=== PATIENT | female | born 1990 | race Caucasian/White ===

== ENCOUNTER 2022-02-22 09:09 | Outpatient (CLI) | payer BC, SELFPAY ==
--- NOTE | 2022-02-22 09:15 | CRLHL7_ITS ---
For Patients: As a result of the Century Cures Act, medical imaging exams and procedure reports are released immediately into your electronic medical record. You may view this report before your referring provider. If you have questions, please contact your health care provider. INDICATION: FOLLOW UP PROFILE AND HEART VIEWS, SUBOPTIMALLY VISUALIZED ON BFAS COMPARISON: 01/24/2022 TECHNIQUE: Real time craig scale imaging of the fetus was performed as well as color Doppler analysis of the umbilical vessels. FINDINGS: Sonographic imaging demonstrates a single living intrauterine gestation. Fetus demonstrates a regular cardiac rate of 128 beats per minute. Fetus has a variable position. The placenta lies posteriorly. Amniotic fluid volume appears normal. Single deepest vertical pocket: 3.9 cm. Normal profile. There is a normal four-chamber heart view and the left and right ventricular outflow tracts appear normal. IMPRESSION: Normal profile, 4 chamber heart and outflow tracts. Dictated by Gennaro Garcia MD @ 02/22/2022 11:43:15 AM (Electronically Signed)
== END 2022-02-22 09:10 | disposition home or self-care (01) ==
LOC: US 09:10
PROVIDERS: Visit Provider Obstetrics & Gynecology
DX: Z34.90 Encounter for supervision of normal pregnancy, unspecified, unspecified trimester (principal)
CPT/HCPCS: 76816

== ENCOUNTER 2022-03-22 13:49 | Outpatient (CLI) | payer BC, SELFPAY ==
[2022-03-23 19:27] LABS: Rapid Plasma Reagin (RPR) Non Reactive (Non Reactive)
== END 2022-03-22 13:50 | disposition home or self-care (01) ==
LOC: NFLDREF 13:51
PROVIDERS: Visit Provider Obstetrics & Gynecology
DX: O10.913 Unspecified pre-existing hypertension complicating pregnancy, third trimester (principal); Z3A.28 28 weeks gestation of pregnancy
CPT/HCPCS: 86592

== ENCOUNTER 2022-04-19 08:02 | Outpatient (CLI) | payer BC, SELFPAY ==
--- NOTE | 2022-04-19 08:15 | CRLHL7_ITS ---
For Patients: As a result of the Century Cures Act, medical imaging exams and procedure reports are released immediately into your electronic medical record. You may view this report before your referring provider. If you have questions, please contact your health care provider. INDICATION: Third trimester scan, evaluate growth. Chronic hypertension COMPARISON: 02/22/2022 TECHNIQUE: Real time craig scale imaging of the fetus was performed. FINDINGS: Sonographic imaging demonstrates a single living intrauterine gestation. Fetus demonstrates a regular cardiac rate of 137 beats per minute. Fetus has a vertex position. The placenta lies posteriorly. Amniotic fluid volume appears normal and there is a single deepest vertical pocket: 6.2 cm. The estimated weight is 1813gm which lies at the 25th %. On the prior OB ultrasound exam dated 01/24/2022 the estimated weight was at the 16th%. BPD 48th percentile. HC 72nd percent. AC 47th percentile. FL less than 3rd percentile. The HC/AC ratio measures 1.10 range (0.96-1.13). Normal gross body movements, tone and respiratory activity. IMPRESSION: Sonographic gestational age 32 weeks 2 days and sonographic due date of 06/12/2022. Good correlation with dates. Normal interval growth. Estimated weight 25th percentile. Abdominal circumference 47th percentile. Femur length less than 3rd percentile. Normal biophysical profile 03/18. Dictated by Gennaro Garcia MD @ 04/19/2022 9:13:52 AM (Electronically Signed)
== END 2022-04-19 08:03 | disposition home or self-care (01) ==
LOC: US 08:03
PROVIDERS: Visit Provider Obstetrics & Gynecology
DX: O10.913 Unspecified pre-existing hypertension complicating pregnancy, third trimester (principal); Z3A.32 32 weeks gestation of pregnancy
CPT/HCPCS: 76816; 76819

== ENCOUNTER 2022-04-25 08:33 | Outpatient (CLI) | payer BC, SELFPAY ==
--- NOTE | 2022-04-25 08:45 | CRLHL7_ITS ---
For Patients: As a result of the Century Cures Act, medical imaging exams and procedure reports are released immediately into your electronic medical record. You may view this report before your referring provider. If you have questions, please contact your health care provider. INDICATION: Chronic hypertension COMPARISON: 04/19/2022 TECHNIQUE: Real time craig scale imaging of the fetus was performed. Without non-stress testing. FINDINGS: Sonographic imaging demonstrates a single living intrauterine gestation. Fetus demonstrates a regular cardiac rate of 152 beats per minute. Fetus has a vertex position. The amniotic fluid volume appears normal and there is a single deepest pocket measurement of 5.2 cm. The fetus was active but breathing movements not observed. There was normal flexion and extension of the trunk and extremities. IMPRESSION: Biophysical profile 01/16. Absent respiratory activity. Dictated by Gennaro Garcia MD @ 04/25/2022 9:41:59 AM (Electronically Signed)
== END 2022-04-25 08:34 | disposition home or self-care (01) ==
LOC: US 08:34
PROVIDERS: Visit Provider Obstetrics & Gynecology
DX: O10.913 Unspecified pre-existing hypertension complicating pregnancy, third trimester (principal); Z3A.33 33 weeks gestation of pregnancy
CPT/HCPCS: 76819

== ENCOUNTER 2022-05-02 08:31 | Outpatient (CLI) | payer BC, SELFPAY ==
--- NOTE | 2022-05-02 08:45 | CRLHL7_ITS ---
For Patients: As a result of the Century Cures Act, medical imaging exams and procedure reports are released immediately into your electronic medical record. You may view this report before your referring provider. If you have questions, please contact your health care provider. INDICATION: PRE-EXISTING HYPERTENSION COMPARISON: 04/25/2022 TECHNIQUE: Real time craig scale imaging of the fetus was performed. Without non-stress testing. FINDINGS: Sonographic imaging demonstrates a single living intrauterine gestation. Fetus demonstrates a regular cardiac rate of 142 beats per minute. Fetus has a vertex position. The amniotic fluid volume appears normal and there is a single deepest pocket measurement of 7.7 cm. The fetus was active and demonstrated normal breathing movements. There was normal flexion and extension of the trunk and extremities. IMPRESSION: Normal biophysical profile score of 8 out of 8. Dictated by Gennaro Garcia MD @ 05/02/2022 10:39:36 AM (Electronically Signed)
== END 2022-05-02 08:32 | disposition home or self-care (01) ==
LOC: US 08:32
PROVIDERS: Visit Provider Obstetrics & Gynecology
DX: O10.919 Unspecified pre-existing hypertension complicating pregnancy, unspecified trimester (principal)
CPT/HCPCS: 76819

== ENCOUNTER 2022-05-09 08:44 | Outpatient (CLI) | payer BC, SELFPAY ==
--- NOTE | 2022-05-09 09:15 | CRLHL7_ITS ---
For Patients: As a result of the Century Cures Act, medical imaging exams and procedure reports are released immediately into your electronic medical record. You may view this report before your referring provider. If you have questions, please contact your health care provider. INDICATION: Hypertension COMPARISON: 05/02/2022 TECHNIQUE: Real time craig scale imaging of the fetus was performed. Without non-stress testing. FINDINGS: Sonographic imaging demonstrates a single living intrauterine gestation. Fetus demonstrates a regular cardiac rate of 125 beats per minute. Fetus has a vertex position. The amniotic fluid volume appears normal and there is a single deepest pocket measurement of 7.2 cm. The fetus was active and demonstrated normal breathing movements. There was normal flexion and extension of the trunk and extremities. IMPRESSION: Normal biophysical profile score of 8 out of 8. Dictated by Gennaro Garcia MD @ 05/09/2022 11:33:44 AM (Electronically Signed)
== END 2022-05-09 08:45 | disposition home or self-care (01) ==
LOC: US 08:44
PROVIDERS: Visit Provider Obstetrics & Gynecology
DX: O10.913 Unspecified pre-existing hypertension complicating pregnancy, third trimester (principal); Z3A.35 35 weeks gestation of pregnancy
CPT/HCPCS: 76819

== ENCOUNTER 2022-05-17 10:05 | Outpatient (CLI) | payer BC, SELFPAY ==
[2022-05-17 10:27] VITALS: BP 129/82; PULSE 75; RESP 16; TEMP 36.8
[2022-05-17 10:36] VITALS: BP 126/69; PULSE 81
[2022-05-17 10:46] VITALS: BP 128/73; PULSE 81
[2022-05-17 10:56] VITALS: BP 126/73; PULSE 76
[2022-05-17 11:08] VITALS: BP 124/63; PULSE 81
[2022-05-17 11:17] VITALS: BP 128/72; PULSE 75
[2022-05-17] MEDS: BETAMETHASONE SOD PHOS/ACETATE 6 MG/ML ML 12 MG IM (11:39)
--- NOTE | 2022-05-17 14:04 | PC.OBNST ---
NST Note NST Note Start: 05/17/22 10:30 Freq: ONCE Status: Active Protocol: Document 05/17/22 10:30 COREY (Rec: 05/17/22 13:41 COREY [id number]) NST Note 3 Para (# of births) 2 EDC 06/13/22 Gestational Age In Weeks & Days 36 Weeks & 1 Days High Risk Factors High Blood Pressure - Gestational Other Complaints [facility] blood pressure. Pt denies pain, denies contractions, and reports that she feels great. Reactive Yes Appropriate for Gestational Age Yes NATALEE Broderick Date 05/17/22 Reactive Yes Appropriate for Gestational Age Yes NATALEE Michael Date 05/17/22 OB NST charge Yes Complete NST Note via Write Note Yes The provider's electronic signature indicates the NST is reactive/appropriate for gestational age. *Note to provider: If an addendum is required, open the patient's chart and click on the note under the Nurse/Allied Health tab.
== END 2022-05-17 11:55 | disposition home or self-care (01) ==
LOC: OB OUT 10:05 → OB 10:06
PROVIDERS: Visit Provider Obstetrics & Gynecology
DX: O13.3 Gestational [pregnancy-induced] hypertension without significant proteinuria, third trimester (principal); Z3A.36 36 weeks gestation of pregnancy
CPT/HCPCS: 59025; 76816; 76819; 82565; 82570; 84156; 84450; 84460; 84520; 87081; 87653; 99213; J0702

== ENCOUNTER 2022-05-18 11:37 | Outpatient (CLI) | payer BC, SELFPAY ==
[2022-05-18] MEDS: BETAMETHASONE SOD PHOS/ACETATE 6 MG/ML ML 12 MG IM (11:54)
[2022-05-18 13:15] VITALS: BP 121/69
== END 2022-05-18 12:10 | disposition home or self-care (01) ==
LOC: OB CLI 11:38 → OB 05-20 09:06
PROVIDERS: Visit Provider Obstetrics & Gynecology
DX: Z34.93 Encounter for supervision of normal pregnancy, unspecified, third trimester (principal); Z3A.36 36 weeks gestation of pregnancy
CPT/HCPCS: 99211; J0702

== ENCOUNTER 2022-05-23 08:07 | Outpatient (CLI) | payer BC, SELFPAY ==
--- NOTE | 2022-05-23 08:15 | CRLHL7_ITS ---
For Patients: As a result of the Century Cures Act, medical imaging exams and procedure reports are released immediately into your electronic medical record. You may view this report before your referring provider. If you have questions, please contact your health care provider. INDICATION: chronic hypertension COMPARISON: 05/17/2022 TECHNIQUE: Real time craig scale imaging of the fetus was performed. Without non-stress testing. FINDINGS: Sonographic imaging demonstrates a single living intrauterine gestation. Fetus demonstrates a regular cardiac rate of 163 beats per minute. Fetus has a vertex position. The amniotic fluid volume appears normal and there is a single deepest pocket measurement of 6.3 cm. The fetus was active and demonstrated normal breathing movements. There was normal flexion and extension of the trunk and extremities. IMPRESSION: Normal biophysical profile score of 8 out of 8. Dictated by Gennaro Garcia MD @ 05/23/2022 9:28:01 AM (Electronically Signed)
[2022-05-23 09:39] VITALS: BP 128/76; PULSE 88
[2022-05-23 09:46] VITALS: BP 126/70; PULSE 81
[2022-05-23 10:01] VITALS: BP 128/64; PULSE 80
[2022-05-23 10:01] LABS: Hematocrit 33.1 % (33.0-51.0); Hemoglobin* 10.8 gm/dL (12.0-16.0); Mean Corpuscular HGB Conc 33 gm/dL (32-36); Mean Corpuscular Hemoglobin 29 pg (26-34); Mean Corpuscular Volume 89 fL (80-100); Platelet Count* 364 K/uL (140-440); Red Blood Count 3.72 m/uL (4.00-5.20); White Blood Count* 9.08 K/uL (4.50-11.00)
[2022-05-23 10:02] LABS: Slide Review Reflex No
[2022-05-23 10:10] LABS: Alanine Aminotransferase* 13 U/L (4-35); Aspartate Amino Transferase* 19 U/L (12-35); Blood Urea Nitrogen* 6 mg/dL (5-24); Creatinine* 0.5 mg/dL (0.5-1.5); Estimated Glomerular Filt Rate 130 ml/min
[2022-05-23 10:16] VITALS: BP 114/63; PULSE 85
[2022-05-23 10:17] LABS: Total Protein Urine 12 mg/dL
[2022-05-23 10:19] LABS: Creatinine Urine 39.1 mg/dL
[2022-05-23 10:30] LABS: INR 0.93 (0.91-1.10); Prothrombin Time 12.9 Seconds
[2022-05-23 10:31] LABS: Fibrinogen* 428 mg/dL (200-450)
[2022-05-23 10:46] VITALS: BP 142/67; PULSE 79
--- NOTE | 2022-05-23 11:26 | PC.OBNST ---
NST Note NST Note Start: 05/23/22 09:21 Freq: ONCE Status: Active Protocol: Document 05/23/22 11:19 AM (Rec: 05/23/22 11:23 AM [id number]) NST Note 3 Para (# of births) 2 EDC 06/13/22 Gestational Age In Weeks & Days 37 Weeks & 0 Days High Risk Factors High Blood Pressure - Preexisting Reactive Yes Appropriate for Gestational Age Yes NATAELE dalton Date 05/23/22 Reactive Yes Appropriate for Gestational Age Yes NATALEE Odell Date 05/23/22 OB NST charge Yes Complete NST Note via Write Note Yes The provider's electronic signature indicates the NST is reactive/appropriate for gestational age. *Note to provider: If an addendum is required, open the patient's chart and click on the note under the Nurse/Allied Health tab.
== END 2022-05-23 11:08 | disposition home or self-care (01) ==
LOC: US 09:16 → OB 09:17
PROVIDERS: Visit Provider Obstetrics & Gynecology
DX: O10.913 Unspecified pre-existing hypertension complicating pregnancy, third trimester (principal); Z3A.37 37 weeks gestation of pregnancy
CPT/HCPCS: 36415; 59025; 76819; 82565; 82570; 84156; 84450; 84460; 84520; 85027; 85384; 85610; 99213

== ENCOUNTER 2022-05-27 05:00 | Inpatient (IN) | payer BC, SELFPAY ==
[2022-05-27] VITALS (29 sets, daily range): BP systolic 91–154; BP diastolic 46–79; PULSE 67–96; RESP 16–18; TEMP 36.6–37.8; O2SAT 95–98; BMI 44.6
[2022-05-27 06:01] LABS: Hemoglobin* 11.3 gm/dL (12.0-16.0)
[2022-05-27] MEDS: LACTATED RINGERS 1000 ML 1,000 ML 900 ML IV ×2 (06:15→08:26)
[2022-05-27 06:36] LABS: SARS PCR* Negative SARS-CoV-2 (Negative)
[2022-05-27 06:50] LABS: Basophils Absolute Auto 0.05 K/uL (0.00-0.30); Basophils Percent Auto 0.5 % (0.0-3.0); Eosinophils Absolute Auto 0.19 K/uL (0.00-0.50); Eosinophils Percent Auto 1.9 % (0.0-7.0); Hematocrit 34.6 % (33.0-51.0); Hemoglobin* 11.3 gm/dL (12.0-16.0); Immature Granulocytes Abs Auto 0.08 K/uL (0.00-0.30); Mean Corpuscular HGB Conc 33 gm/dL (32-36); Mean Corpuscular Hemoglobin 29 pg (26-34); Mean Corpuscular Volume 89 fL (80-100); Monocytes Percent Auto 8.3 % (0.0-11.0); Neutrophils Absolute Auto 6.34 K/uL (1.7-7.0); Neutrophils Percent Auto 63.5 % (42.0-72.0); Platelet Count* 401 K/uL (140-440); RDW Coefficient of Variation % 13.6 % (11.5-15.5); Red Blood Count 3.91 m/uL (4.00-5.20); White Blood Count* 9.99 K/uL (4.50-11.00)
[2022-05-27 06:53] LABS: Slide Review Reflex No
--- NOTE | 2022-05-27 07:12 | PM.PROC ---
Procedure Note Time Seen by Provider: 07:13 Date Seen: 05/27/22 Date of procedure: 05/27/22 Will [facility] bill your pro fee for this procedure?: Yes Procedure: Preoperative diagnosis: 31-year-old 3 para 2002 at 37 and 4/7 weeks admitted for a 1. Scheduled repeat low transverse section. 2. Undesired fertility 3. Chronic htn 4. History of T incision on the uterus Postoperative diagnosis: Same Procedure: Repeat low-transverse section. Bilateral Salpingectomy Anesthesia: Spinal Surgeon: Bee Gabriel MD Sql Developer: Toshia Cullen MD Quantitative blood loss: 406 mL IVF: 2000 mL UOP: 300 mL clear urine at the end of the procedure Drain(s): De La Torre to gravity Specimen: Right and left fallopian tubes, and placenta to pathology. Findings: A live female infant was delivered from the direct OA position at 7:57 a.m.. Apgars were [] at 1 min and [] at 5 min respectively. weight: 7 lb 1 oz. Nuchal cord(s): Yes, 1 loose cord easily reduced prior to delivery of the infant's shoulders at the surgical field. The placenta was delivered spontaneously and complete at 7:59 a.m.. Amniotic fluid: Copious amount of clear fluid. Normal uterus, fallopian tubes and ovaries were noted. Other findings: Some thick adhesions in the midline of the fascia otherwise minimal adhesions. Procedure: Roshni was taken to the OR where spinal anesthetic was found be adequate. A De La Torre catheter was placed. The patient was then placed in the dorsal supine position with a leftward tilt. She was then prepped and draped in a normal sterile manner. A Pfannenstiel skin incision was made and carried through sharply to the underlying layer of fascia. Fascia was incised in the midline and this incision carried laterally with Krueger scissors. The superior aspect of fascial incision was grasped with Peter clamps, tented up, and the rectus muscles dissected off with a combination of blunt and sharp dissection. The inferior aspect of the fascial incision was grasped with Peter clamps, tented up and again the rectus muscles dissected off with a combination of blunt and sharp dissection. The rectus muscles were in the midline. The peritoneum was entered bluntly. This opening was extended in layers using Krueger scissors. An Donnie-O self-retaining retractor was placed. A bladder flap was created using Metzenbaum scissors and DeBakey pickup.. Uterus was incised in a low transverse manner in the midline. This incision carried laterally with blunt pressure on the inferior and superior aspects of the uterine incision. The amniotic sac was ruptured. The infant's head and body was delivered atraumatically. The infant was shown to the patient and her support person, then handed to waiting nursing staff. The placenta was delivered spontaneously. The uterus was cleared of clots and debris. The uterine incision was re-approximated with the uterus in vivo. The 1st layer using 0-Vicryl in a running, locked manner. The 2nd layer using 0-Monocryl in a running, vertical, imbricating layer. Additional sutures needed for hemostasis: No. The uterus was atonic after delivery of the placenta. The patient received: 1 g IV TXA, Methergine 0.20 mg IM x1, buccal Cytotec 400 mg and rectal Cytotec 400 mg. Attention was then turned to performing the bilateral salpingectomy. The uterus was exteriorized to visualize fallopian tubes and ovaries.The right fallopian tube was identified, grasped with 2 [place] clamps and followed to the fimbriated end of the fallopian tube. The hand-held LigaSure dissecting forceps was used to remove the fallopian tube from the cornua and broad ligament by sequential pedicles. The pedicles were started at the fimbriated end of the tube and extended toward the cornua. The fallopian tube was amputated from the cornual a and sent to pathology. Hemostasis of the pedicles was obtained using bipolar cautery and a DeBakey forceps. The left fallopian tube was then identified, grasped with 2 [place] clamps and removed in the same manner as the right fallopian tube. All pedicles were visualized and hemostasis obtained using bipolar cautery with a DeBakey clamp. The uterine incision was reinspected and noted to be hemostatic. The Donnie retractor was removed. The rectus muscles were reapproximated using 3-0 Vicryl vertical mattress sutures. The rectus muscles were then closely inspected to verify hemostasis. Hemostasis was obtained with bipolar cautery. The fascia was then reapproximated using 0-Maxon loop in a running manner. The subcutaneous tissue was then irrigated with saline and hemostasis obtained with bipolar cautery. The subcutaneous tissue was reapproximated using 3-0 plain gut interrupted sutures. The skin was reapproximated using 4-0 Monocryl in a running subcuticular manner. A silver-containing Methaplex dressing were applied. The patient tolerated this procedure well. Sponge, lap and instrument counts were correct x2 active to the procedure. Patient was taken to the recovery area in stable condition. The patient received 3g of IV Ancef prior to skin incision. 1gm IV TXA given after cord clamp. 30mg IV Toradol given prior to leaving the OR. Surgeon: Bee Gabriel MD
[2022-05-27] MEDS: miSOPROStoL 800 MCG/4 TABLET 400 MCG PR (08:10)
--- NOTE | 2022-05-27 08:20 | W.ANESCHARGE ---
Anesthesia Charges Start Date/Time Anesthesia Start Date: 05/27/22 Anesthesia Start Time: 07:15 Stop Date/Time Anesthesia Stop Date: 05/27/22 Anesthesia Stop Time: 09:05 Summary Emergency: No
--- NOTE | 2022-05-27 09:30 | W.PM.NB ---
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 Images saved: Yes Medications given in 5ml increments after negative aspiration: Marcaine %: 0.25 mL: 30 Needle gauge: 20 and Exparel mL: 10 Patient tolerated procedure well: Yes Additional comments: Needle noted adjacent to nerve Block Charges Block Charge (with Pro Fee): TAP Bilateral Use of Ultrasound Machine for Block: Yes- US Guidance/pain block
--- NOTE | 2022-05-27 09:31 | W.ANESCHARGE ---
Anesthesia Charges Start Date/Time Anesthesia Start Date: 05/27/22 Anesthesia Start Time: 07:15 Stop Date/Time Anesthesia Stop Date: 05/27/22 Anesthesia Stop Time: 09:05 Summary Emergency: No
[2022-05-27] MEDS: KETOROLAC 30 MG/ML inj IVP ×3 (09:55→22:33)
[2022-05-27] MEDS: LACTATED RINGERS 1000 ML 1,000 ML 125 ML IV (11:30)
[2022-05-27] MEDS: SODIUM CHLORIDE 0.9 % (FLUSH) 10 ML SYRINGE IVF (22:33)
[2022-05-28] VITALS (10 sets, daily range): BP systolic 103–130; BP diastolic 65–82; PULSE 81–91; RESP 15–16; TEMP 36.6–36.9; O2SAT 95–97
[2022-05-28] MEDS: KETOROLAC 30 MG/ML inj IVP ×2 (04:57→12:21)
[2022-05-28 07:34] LABS: Hemoglobin* 10.1 gm/dL (12.0-16.0)
--- NOTE | 2022-05-28 08:17 | PM.OBPNCS1 ---
OB - PN: A/P Assessment and Plan (1) Status post bilateral salpingectomy: Status: Acute (2) Status post repeat low transverse section: Problem details: Girl, Carlos, at 0757am, 7#1oz. Status: Acute (3) Lactating mother: Status: Acute Plan 35 year old on day [].? 1. cares.? 2. Anticipate discharge tomorrow. Plan day: 1 Plan: routine postop care OB - PN: Subj Subjective Date Seen: 05/28/22 Patient comments: no complaints, pain well controlled, tolerating diet and flatus present [place] infant status: and doing well [place] feeding status: exclusively Narrative: The patient feels well.? The pain is well controlled with current medications.? She has no new complaints.? Urinary output is adequate and she is voiding without difficulty.? Has a good appetite, is tolerating a general diet, is passing flatus, and has not had a bowel movement.? Has scant amount of rubra lochia.? She is ambulating well.?She is and feels that it is going well. She would like to discharge tomorrow if things continue to go well. OB - PN: Obj Exam Physical Exam: Vital signs: Temp Pulse Resp BP Pulse Ox O2 Del Method 98.2 F 90 16 103/65 96 05/28/22 04:54 05/28/22 04:54 05/28/22 07:00 05/28/22 04:54 05/28/22 04:54 05/28/22 04:54 Constitutional: Constitutional: no acute distress Routine HEENT Exam: Head: Present normal inspection Eye: Present normal appearance Routine Neck Exam: Neck: Present full ROM Routine Respiratory Exam: Respiratory: Present CTA bilaterally Routine Cardiovascular Exam: Cardiovascular: Present RRR Routine Abdominal Exam: Fundus: Present firm Routine Rectal Exam: Patient deferred: visual exam Routine Back/Spine/Pelvis Exam: Back/Spine: Present full ROM Routine Psychiatric Exam: Psychiatric: Present normal affect Wound Management: Examination: Present dressed, clean, dry and intact Urinary Catheter Management: Urethral: Cath placed during this visit: yes, has been removed by the RN Urethral indwelling: No Reason for continuing: surgical procedure Insertion date: 05/27/22 Insertion time: 07:40 OB - PN: Obj Data Labs Labs: Laboratory Results - last 24 hr 10/18/22 07:16 Hgb 10.1 L
[2022-05-28] MEDS: SODIUM CHLORIDE 0.9 % (FLUSH) 10 ML SYRINGE IVF (12:21)
[2022-05-28] MEDS: IBUPROFEN 600 MG TABLET PO (18:15)
[2022-05-29 00:10] VITALS: BP 105/70; PULSE 86; RESP 16; O2SAT 96
[2022-05-29] MEDS: IBUPROFEN 600 MG TABLET PO ×2 (00:12→06:12)
[2022-05-29 04:13] VITALS: BP 112/72; PULSE 86; RESP 16; O2SAT 96
[2022-05-29 07:51] VITALS: BP 123/82; PULSE 83; RESP 16; TEMP 36.9; O2SAT 98
[2022-05-29] MEDS: MEASLES,MUMPS,RUBELLA VACC/PF 1 DOSE INJ 1 EACH SUBCUT (07:57)
--- NOTE | 2022-05-29 10:16 | P.DS_ITS ---
DS: Providers Provider Time Seen by Provider: : Date Seen: 05/29/22 Date of admission: 05/27/22 05:00 Primary care physician: Not a Local Provider Admitting Clinician: Bee Gabriel MD Attending Physician on discharge: Bee Gabriel MD Date of Discharge: 05/29/22 DS: Diagnosis Discharge Diagnosis (1) Status post repeat low transverse section: Status: Acute Problem details: Girl, Carlos, at 0757am, 7#1oz. (2) Chronic hypertension affecting : Status: Acute (3) Status post bilateral salpingectomy: Status: Acute (4) Lactating mother: Status: Acute Exam Const: Vital Signs, click to edit/add: Vital Signs - 24 hr 05/28/22 12:24 05/28/22 16:18 05/28/22 20:46 Temperature 97.8 F 98 F Pulse Rate [Pulse Oximeter] 86 86 86 Respiratory Rate 16 16 16 Blood Pressure [Ri ght Arm] 116/75 126/82 130/80 Pulse Oximetry 96 96 96 Oxygen Delivery Me thod Room Air Room Air Room Air 05/29/22 00:10 05/29/22 04:13 05/29/22 07:51 Temperature 98.5 F Pulse Rate [Pulse Oximeter] 86 86 83 Respiratory Rate 16 16 16 Blood Pressure [Ri ght Arm] 105/70 112/72 123/82 Pulse Oximetry 96 96 98 Oxygen Delivery Me thod Room Air Room Air Room Air Documenting provider has reviewed patient's vital signs: yes Common normals: no apparent distress, oriented x3 and healthy appearing General appearance: cooperative and well kempt HENMT: Common normals: normocephalic Head and scalp: normocephalic Neck & C-Spine: Common normals: full ROM and supple Chest: Common normals: inspection of chest normal Chest: symmetrical chest wall rise Resp: Common normals: normal respiratory effort and clear to auscultation bilaterally Auscultation: clear to auscultation bilaterally Cardio: Common normals: regular rate and regular rhythm Rate: regular rate Rhythm: regular rhythm GI: Common normals: Normal to inspection, nondistended, normoactive bowel sounds present, soft to palpation and non-tender Palpation: soft : Uterus: U/U Lochia: small Back & Pelvis: Common normals: thoraco-lumbar ROM normal Extremity: Common normals: normal to inspection, full ROM and no pedal edema Neuro: Common normals: oriented x3 Psych: Appearance: well kempt Skin: Common normals: no rashes or lesions noted General skin exam: no rashes or lesions noted Wounds: wounds noted (Dressing on, clean/dry/intact) OB - DS: Summary Hospital Course Hospital Course: The patient is a 31 year old G 3 P 3 at 37.4 weeks gestation that was admitted to the [facility] on 05/27/22 for repeat . She had an uncomplicated vaginal delivery. She delivered a viable female . She is breast feeding, which is going well. the patient has done well. She is ambulating w/o dizziness. She is voiding w/o difficulty and has had a bowel movement. Her pain is well controlled w/ current medication. She had a tubal ligation for prevention. Peripartum Data Procedures: Procedures Operation Date: 05/27/22 07:00 Actual Procedure Side Surgeon p Repeat Section, Tubal Ligation Bee Gabriel MD complications: none Infant Gender: Female Infant Discharge Plan: Home Status at Discharge Functional status at discharge: independent ambulation Overall status at discharge: patient is progressing back to baseline Time Spent with Patient Time attestation: Total time spent providing and/or coordinating discharge services: Time spent: Less than 30 minutes Discharge Plan Discharge Disposition: Home, Self-Care Date of Admission: 05/27/22 05:00 Attending Provider on Discharge: Jacqueline Price Primary Care Provider: Provider,Not a Local Condition: Stable Anticipated Discharge Date/Time: 05/29/22 15:00 Discharge Medications: New docusate sodium 100 mg Capsule 100 mg PO BID PRN (Reason: constipation) Qty: 100 0RF ibuprofen 600 mg Tablet 600 mg PO Q6H PRN (Reason: Pain) 30 Days Qty: 30 0RF oxycodone 5 mg Tablet 5 mg PO 3XD PRN (Reason: Pain) 7 Days Qty: 21 0RF Continued DHA 200 mg capsule 200 mg PO DAILY labetalol 100 mg tablet 100 mg PO BID Qty: 120 0RF Hold Instructions: Doctor's Order Discharge Orders: Discharge Order (Routine); Ordered 05/29/22 Ordered By: Jacqueline Price Patient Education: OB Over the Counter Medication Information, OB /Breast Feeding Additional Instructions: Discharge instructions were reviewed with the patient including signs and symptoms of infection and home going medications Lifting Restrictions: 20 pounds for 6 weeks No not submerge incision under water X 2 weeks? Nothing vaginally for 6 weeks: no tampons or intercourse Do not drive while taking narcotic pain medication(s) Off Work or School for a minimum of 8 weeks Symptoms to report to doctor: * Bleeding that saturates more than one pad per hour * Passing clots larger than the size of a golf ball * Pain not relieved by prescribed medication * Fever above 100.4 degrees Fahrenheit * A foul vaginal odor * Difficulty in emotions, mood, and functions * Thoughts of hurting yourself and/or * Painful, reddened area in your breast * Any drainage, redness, or tenderness in your IV/epidural site * Severe headache that doesn't improve after taking medications * Changes in vision, including temporary loss of vision, blurred vision, and/or light sensitivity * Upper abdominal pain (usually under ribs on the right side) * Decrease in urination or painful, frequent urinating * Chest pain * Shortness of breath * Tenderness or pain with redness and/swelling in the calf(s) of your leg Remove dressing in 1 week. Call for appointment if concerned. Incision check in 2 weeks.. Options: discuss infant feeding concerns and screen for anxiety/depression. 6-week visit for an annual exam. consultation services are available to all mothers and babies for the first year after delivery.? To make an appointment, please call [phone]. Activity Level: Activity as Tolerated Activity Detail: No driving until you can comfortably slam on the brakes in an emergency and not while taking oxycodone Discharge Diet: Regular Follow Up Appointments: [facility] [Provider Group] Provider,Not a Local [Primary Care Provider] - Forms: exoro system Info Instructions
== END 2022-05-29 11:55 | disposition home or self-care (01) | DRG 540 ==
PROVIDERS: Admitting Provider Obstetrics & Gynecology; Visit Provider Obstetrics & Gynecology
PROC: 10D00Z1 Extraction of Products of Conception, Low, Open Approach (ICD-10-PCS; CPT 59514; principal; 2022-05-27 07:00)
DX: O34.211 Maternal care for low transverse scar from previous cesarean delivery (principal); O10.92 Unspecified pre-existing hypertension complicating childbirth; Z3A.37 37 weeks gestation of pregnancy; Z37.0 Single live birth; Z30.2 Encounter for sterilization
CPT/HCPCS: 01961; 36415; 64488; 76942; 85018; 85025; 86850; 86900; 86901; 87635; 88302; 88307; A9270; C9290; J1885; J2175; J2210; J2274; J2370; J2405; J3490; J7120

== ENCOUNTER 2022-07-22 13:16 | Outpatient (CLI) | payer BC, SELFPAY | END 2022-07-22 13:17 | disposition home or self-care (01) | LOC: KYNREF 13:17 | PROVIDERS: Visit Provider Nurse Practitioner Family | DX: L02.91 Cutaneous abscess, unspecified (principal) | CPT/HCPCS: 87070 ==

== ENCOUNTER 2024-03-05 22:06 | Emergency (ER) | payer BC, SELFPAY ==
[2024-03-05 22:10] VITALS: BP 162/100; PULSE 84; RESP 18; TEMP 36.2; O2SAT 100; BMI 42.6
--- NOTE | 2024-03-05 22:15 | ED.GENADULT ---
HPI - General Adult General Chief complaint: Unspecified Complaint, Adult Stated complaint: left pinky injury Time Seen by Provider: 03/05/24 22:15 History of Present Illness HPI narrative: left pinky injury. Was seen in urgent care, was told its not infected. Pt has a wound to finger, wound had grown. Unknown if a spider bit. Unknown how the wound started. Wound was noticed several days ago, started as a scab. 33-year-old woman presenting to the emergency department with concern of nodule on left 5th finger. Was just seen in urgent care to and informed was not infected. Was referred to dermatology. X-ray was also done noting only soft tissue swelling around the 5th PIP joint. This may have started sometime ago with an insect bite of some sort. Has grown rapidly. Uncomfortable and was rather throbbing last night but not terribly painful. Seems to have started as a scab. No fever. No drainage. Related Data Home Medications ?Medication ?Instructions ?Recorded ?Confirmed No Known Home Medications 04/05/24 04/05/24 Allergies Allergy/AdvReac Type Severity Reaction Status Date / Time cephalexin [From Keflex] Allergy Severe Rash Verified 04/05/24 09:25 Review of Systems Status of ROS: Reports: 6 or more systems reviewed and unremarkable except as noted in History and below [facility] Medical History Hives ?L50.9 - Urticaria, unspecified (ICD-10) Chronic hypertension affecting ?O10.919 - Unspecified pre-existing hypertension complicating , unspecified trimester (ICD-10) Status post hysteroscopy ?Z98.890 - Other specified postprocedural states (ICD-10) History of gestational hypertension ?Z87.59 - Personal history of other complications of , childbirth and the puerperium (ICD-10) Gestational hypertension ?O13.9 - Gestational [-induced] hypertension without significant proteinuria, unspecified trimester (ICD-10) 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) Surgical History Status post bilateral salpingectomy (05/27/22) ?Z90.79 - Acquired absence of other genital organ(s) (ICD-10) Status post repeat low transverse section (05/27/22) ?Z98.891 - History of uterine scar from previous surgery (ICD-10) Status post primary low transverse section ?Z98.891 - History of uterine scar from previous surgery (ICD-10) History of tonsillectomy ?Z90.89 - Acquired absence of other organs (ICD-10) Social History What is your current living situation?: I presently have a place to live Problems where you live: no known problems In the past 12 months, utilities in danger of being shut off: no In past 12 months, lack of transportation kept you from medical appts, meetings, work, or getting things needed for daily living: no In the past 12 mos, have been you worried that your food would run out before you had money to buy more?: never true In the past 12 mos, the food you bought just didn't last and you didn't have money to buy more?: never true Smoking Status: Never smoker How often does anyone, including family, friends and others, physically hurt you: never How often does anyone, including family, friends and others, insult or talk down to you: never How often does anyone, including family, friends and others, threaten you with harm: never How often does anyone, including family, friends and others, scream or curse at you: never Little interest or pleasure in doing things: not at all Feeling down, depressed, or hopeless: not at all Exam Narrative: Exam Narrative: Pleasant. Positive affect. Good energy. Skin is warm and dry. Examination of the left hand area question shows a subcentimeter nodular eruption at the left 5th dorsal medial D IP joint. Somewhat erythematous lesion and cruciferous or almost friable. I think this is consistent with pyogenic granuloma actually. Mild erythema surrounding but I do not see extensive changes consistent with infection/cellulitis. She flexes and extends with mild increase in pain. Const: Vital Signs, click to edit/add: Vital Signs - 24 hr 03/05/24 22:10 Temperature 97.2 F L Pulse Rate [Left P ulse Oximeter] 84 Respiratory Rate 18 Blood Pressure [Ri ght Upper Arm] 162/100 H Pulse Oximetry 100 Oxygen Delivery Me thod Room Air Documenting provider has reviewed patient's vital signs: yes Common normals: no apparent distress Course Vital Signs Vital signs: Initial Vital Signs Temperature 97.2 F L 03/05/24 22:10 Temperature Source Temporal Artery Scan 03/05/24 22:10 Pulse Rate 84 03/05/24 22:10 Pulse Rhythm Regular 03/05/24 22:10 Respiratory Rate 18 03/05/24 22:10 Blood Pressure 162/100 H 03/05/24 22:10 Blood Pressure Mean 120 H 03/05/24 22:10 Blood Pressure Position Sitting 03/05/24 22:10 Pulse Oximetry 100 03/05/24 22:10 Oxygen Delivery Method Room Air 03/05/24 22:10 Vital Signs Temperature 97.2 F L 03/05/24 22:10 Pulse Rate 84 03/05/24 22:10 Respiratory Rate 18 03/05/24 22:10 Blood Pressure 162/100 H 03/05/24 22:10 Pulse Oximetry 100 03/05/24 22:10 Oxygen Delivery Method Room Air 03/05/24 22:10 Temperature 97.2 F L 03/05/24 22:10 Pulse Rate 84 03/05/24 22:10 Respiratory Rate 18 03/05/24 22:10 Blood Pressure 162/100 H 03/05/24 22:10 Pulse Oximetry 100 03/05/24 22:10 Oxygen Delivery Method Room Air 03/05/24 22:10 Medical Decision Making MDM Narrative Medical decision making narrative: Reviewed notes and x-ray imaging. Swelling next to be at the DIP joint. Discussed potential treatments here. She would like it removed if possible. Considering rapidity of growth and in the setting of what sounds to have been some recent minimal trauma, I think pyogenic granuloma most likely diagnosis. This will likely require excision and cautery to fully resolve. Only concern would be if this extends to the joint space but given her ability to flex and extend I think that is unlikely. She would prefer to move ahead with more definitive treatment here. Informed consent obtained. Digital block placed with lidocaine with good anesthesia. Cleansed with Betadine. Sliced off this nodule with scalpel. Did bleed easily. Applied silver nitrate cautery. Wrapped with antibiotic ointment Band-Aid and light pressure dressing. Tolerated procedure quite well. Wound culture was obtained. I do not see evidence significant infection but it is over the joint space. She would be more comfortable and I think it is prudent to initiate prophylactic antibiotic with cephalexin this case. See patient discharge plan for further discussion Medical Records Medical records reviewed: Yes I reviewed the patient's medical records Discharge Plan Discharge Clinical Impression: Pyogenic granuloma, Nodule of finger Patient Disposition: Home, Self-Care Condition: Stable Additional Instructions: A wound culture will be pending here. More useful I think if there seems to be an evolving infection. Antibiotic as prophylaxis -- cephalexin from [facility] for comfort. Ibuprofen, acetaminophen. Change dressing daily. For the next few days I would use antibiotic ointment. If bleeds through this current dressing I would redress and if you bleed through that, return. Watch for spreading redness after 2 days, increasing swelling, marked increase in pain beyond what you might expect after wearing off of anesthetic, purulent drainage. Prescriptions: No Action No Known Home Medications Follow Up/Referrals: Provider,Not a Local [Non-Staff] - Stand Alone Forms: [employer] Info Instructions
== END 2024-03-05 23:51 | disposition home or self-care (01) ==
PROVIDERS: Emergency Provider Family Medicine; PCP Nurse Practitioner Family
DX: L98.0 Pyogenic granuloma (principal)
CPT/HCPCS: 17250; 87070; 87186; 99283; 99284

== ENCOUNTER 2024-04-05 09:32 | Outpatient (CLI) | payer BC, SELFPAY | END 2024-04-05 09:33 | disposition home or self-care (01) | PROVIDERS: PCP Nurse Practitioner Family; Visit Provider Obstetrics & Gynecology | DX: Z01.419 Encounter for gynecological examination (general) (routine) without abnormal findings (principal); Z13.6 Encounter for screening for cardiovascular disorders | CPT/HCPCS: 80061 ==

== ENCOUNTER 2025-05-20 10:18 | Outpatient (CLI) | payer BC, SELFPAY | END 2025-05-20 10:19 | disposition home or self-care (01) | PROVIDERS: PCP Nurse Practitioner Family; Visit Provider Nurse Practitioner Family | DX: R42 Dizziness and giddiness (principal); L29.9 Pruritus, unspecified; Z86.2 Personal history of diseases of the blood and blood-forming organs and certain disorders involving the immune mechanism; Z13.810 Encounter for screening for upper gastrointestinal disorder | CPT/HCPCS: 80050; 80053; 82728; 82784; 83540; 84439; 84443; 85025; 86231; 86258; 86364; 86376 ==